=== PATIENT | male | born 1975 | race American Indian/Alaskan Native ===

== ENCOUNTER 2018-03-28 18:28 | Emergency (ER) | payer MEDICAID, OTHER ==
[2018-03-28 18:53] VITALS: RESP 18
[2018-03-28 19:57] LABS: BASO % 0.7 % (0.0-2.0); EOS # 0.1 K/uL (0.0-0.7); EOS % 1.6 % (0.0-4.0); LYMPH # 1.9 K/uL (1.0-4.3); LYMPH % 26.7 % (20.0-40.0); MEAN CELL VOLUME 89.5 fL (80.0-94.0); MEAN CORPUSCULAR HEMOGLOBIN 29.1 pg (27.0-31.0); MEAN CORPUSCULAR HGB CONC 32.6 g/dL (33.0-37.0); MEAN PLATELET VOLUME 10.1 fL (7.2-11.7); MONO # 0.5 K/uL (0.0-0.8); MONO % 7.9 % (0.0-10.0); NEUT # 4.4 K/uL (1.8-7.0); NEUT % 63.1 % (50.0-75.0); NRBC % 0.1 % (0.0-2.0); RBC 4.82 Mil/uL (4.40-5.90); RED CELL DISTRIBUTION WIDTH 13.4 % (11.5-14.5)
[2018-03-28 20:10] LABS: INR 1.2; PROTHROMBIN TIME 12.6 SECONDS (9.7-12.2)
[2018-03-28 20:11] LABS: ALB/GLOB RATIO 1.1 (1.0-2.1); ALBUMIN 4.1 g/dL (3.5-5.0); ALT/SGPT 28 U/L (21-72); AST/SGOT 22 U/L (17-59); BLOOD UREA NITROGEN 20 mg/dL (9-20); CALCIUM 8.8 mg/dl (8.6-10.4); GFR NON-AFRICAN AMERICAN > 60
[2018-03-28 20:25] LABS: SQUAMOUS EPITHIAL 2 /hpf (0-5); URINE BACTERIA FEW (<OCC); URINE BILIRUBIN NEGATIVE (NEGATIVE); URINE BLOOD NEGATIVE (NEGATIVE); URINE CLARITY Clear (Clear); URINE COLOR Yellow (YELLOW); URINE GLUCOSE (UA) NORMAL (Normal); URINE HYALINE CAST 0-2 /lpf (0-2); URINE LEUKOCYTE ESTERASE 1+ Leu/uL (Negative); URINE PROTEIN 2+ mg/dL (NEGATIVE)
[2018-03-28 20:27] VITALS: TEMP 98; O2SAT 98
--- NOTE | 2018-03-28 20:57 | C.PDOC ---
History Of Present Illness 43 y/o male pt presents to the ER with c/o swelling and pain in his lower extremity for x1 year. Pt reports he is able to ambulate, slowly over the past year. He was seen very recently <1 week ago in a different hospital, [facility] here he received repeated US, results (-) and 20mg for Lasix. He notes that he also saw his PMD a couple of days ago who reccomended continued lasix. Pt notes that his swelling has not worsened, but that he is concerned because he has seen minimal improvement. He denies any orthopnea, PND, sob or chest pain. NO redness or erythema to RLE. NO penile pain or d/c or rash. No fever, chills or night sw eats. No other complaints Time Seen by Provider: 03/28/18 20:57 Chief Complaint (Nursing): Lower Extremity Problem/Injury History Per: Patient History/Exam Limitations: no limitations Onset/Duration Of Symptoms: Days (x1 year) Current Symptoms Are (Timing): Still Present Past Medical History Reviewed: Historical Data, Nursing Documentation, Vital Signs Vital Signs: Last Vital Signs Temp 98 F 03/28/18 20:26 Pulse 78 03/28/18 20:26 Resp 18 03/28/18 20:26 BP 119/73 03/28/18 20:26 Pulse Ox 98 03/28/18 20:26 Family History: States: Unknown Family Hx - Social History Hx Alcohol Use: No Hx Substance Use: No - Immunization History Hx Tetanus Toxoid Vaccination: No Hx Influenza Vaccination: No Hx Pneumococcal Vaccination: No Review Of Systems Constitutional: Negative for: Fever, Chills, Weakness Eyes: Negative for: Pain Cardiovascular: Negative for: Chest Pain Respiratory: Negative for: Cough, SOB with Excertion Gastrointestinal: Negative for: Nausea, Vomiting, Abdominal Pain, Constipation, Melena Genitourinary: Negative for: Dysuria, Frequency Musculoskeletal: Positive for: Leg Pain, Other (swelling of lower extremity). Negative for: Neck Pain, Back Pain, Hand Pain Neurological: Negative for: Weakness, Numbness, Incoordination, Altered Mental Status, Headache Psych: Negative for: Anxiety, Depression Physical Exam - Physical Exam Appears: Non-toxic, No Acute Distress Skin: Warm, Dry Head: Normacephalic Eye(s): bilateral: Normal Inspection, PERRL, EOMI Oral Mucosa: Moist Tongue: Normal Appearing Lips: Normal Appearing Teeth: Normal Dentition Throat: Normal, No Erythema Neck: Normal ROM, Supple, Other (no meningeal signs) Lymphatic: No Axilla Node Tenderness, No Inguinal Node Tenderness Chest: Symmetrical, No Deformity Cardiovascular: Rhythm Regular, No Friction Rub Respiratory: Normal Breath Sounds, No Decreased Breath Sounds, No Rales, No Rhonchi, No Wheezing Gastrointestinal/Abdominal: Soft, No Tenderness Back: No CVA Tenderness Male Genital: Normal Inspection Extremity: Normal ROM, Pedal Edema (2+ RLE. 1+ LLE), No Calf Tenderness, Capillary Refill (normal), Swelling, Other (n/v intact in both b/l le) Extremity: Bilateral: Atraumatic, Normal Color And Temperature, Normal ROM Pulses: Left Dorsalis Pedis: Normal, Right Dorsalis Pedis: Normal Neurological/Psych: Oriented x3, Normal Speech, Normal Cognition, Normal Cranial Nerves, No Cerebellar Signs, Normal Motor, Normal Sensation, Normal Reflexes Gait: Steady Extremity: Right: No Drift, Left: No Drift, Upper: No Drift, Lower: No Drift ED Course And Treatment - Laboratory Results Result Diagrams: 03/28/18 20:01 03/28/18 20:00 ECG: Interpreted By Me, Viewed By Me Interpretation Of ECG: nml sinus. Single flipped T in T3. Rate From EC O2 Sat by Pulse Oximetry: 98 Medical Decision Making Medical Decision Making: Impression: Pedal edema, Lymphedema. Pt has previously been diagnosed w/ lym phedema and has had repeated w/u w/ multiple negative US for DVT at outside institution. Pt was diagnosed w/ lymphedema and f/u w/ PMD who reccomended continued lasix. Pt notes mild imporvement with lasix. Given able to ambulate, mild b/l LE edema w/ negative BNPS previously and echo, likely recurrent lymphedema. I endorsed and educated patient regarding lymphedema- as well as need for compression stocking. I endorsed that we would run some labs and he is agreeable. Plans: -- chem labs -- blood work -- Urine cx -- UA 2225 labs unremarkable besides uti. No prostate complaints. no fullness, dysuria, testicular pain. No testicular swelling. clear for d/c home Disposition - Disposition Referrals: [facility] [Outside] Chip Crane MD [Non-Staff] - Jamari Live MD [Staff Provider] - Disposition: HOME/ ROUTINE Disposition Time: 22:24 Condition: GOOD Prescriptions: RX: Ciprofloxacin [Cipro] 500 mg PO BID 14 Days #28 tab Instructions: Urinary Tract Infection, Adult (DC), Lymphedema (DC) Forms: [facility] (Yoruba) - Clinical Impression Clinical Impression: Lymphedema, UTI (urinary tract infection) - Scribe Statement The provider has reviewed the documentation as recorded by the Freddy Licona Do Provider Attestation: All medical record entries made by the Scribe were at my direction and personally dictated by me. I have reviewed the chart and agree that the record accurately reflects my personal performance of the history, physical exam, medical decision making, and the department course for this patient. I have also personally directed, reviewed, and agree with the discharge instructions and disposition.
[2018-03-28] MEDS ORDERED: Oxycodone/Acetaminophen 5/325 mg Tab ONE (21:42)
[2018-03-28 22:55] VITALS: BP 122/84; PULSE 82
--- NOTE | 2018-03-29 21:20 | CARD ---
APPROVED REPORT Date of service: 03/28/2018 EKG Measurement Heart [id number] CO [id number] [id number] <Conclusion> Normal sinus rhythm Rightward axis Cannot rule out Inferior infarct, age undetermined Abnormal ECG
== END 2018-03-28 22:56 | disposition home or self-care (01) ==
LOC: C.ER 18:28
DX: I89.0 Lymphedema, not elsewhere classified (principal); N39.0 Urinary tract infection, site not specified

== ENCOUNTER 2018-05-06 11:09 | Emergency (ER) | payer MEDICAID ==
[2018-05-06 13:06] LABS: BASO % 0.6 % (0.0-2.0); EOS # 0.1 K/uL (0.0-0.7); EOS % 1.4 % (0.0-4.0); LYMPH # 1.7 K/uL (1.0-4.3); LYMPH % 24.1 % (20.0-40.0); MEAN CELL VOLUME 91.2 fL (80.0-94.0); MEAN CORPUSCULAR HEMOGLOBIN 29.7 pg (27.0-31.0); MEAN CORPUSCULAR HGB CONC 32.6 g/dL (33.0-37.0); MEAN PLATELET VOLUME 11.1 fL (7.2-11.7); MONO # 0.6 K/uL (0.0-0.8); MONO % 8.6 % (0.0-10.0); NEUT # 4.6 K/uL (1.8-7.0); NEUT % 65.3 % (50.0-75.0); NRBC % 0.1 % (0.0-2.0); RBC 4.7 Mil/uL (4.40-5.90); RED CELL DISTRIBUTION WIDTH 13.4 % (11.5-14.5)
[2018-05-06 13:22] LABS: ALB/GLOB RATIO 1.2 (1.0-2.1); ALBUMIN 4.2 g/dL (3.5-5.0); ALT/SGPT 37 U/L (21-72); AST/SGOT 24 U/L (17-59); BLOOD UREA NITROGEN 19 mg/dL (9-20); CALCIUM 8.9 mg/dl (8.6-10.4); GFR NON-AFRICAN AMERICAN > 60
[2018-05-06 13:33] LABS: B-TYPE NATRIURETIC PEPTIDE < 11.1 pg/mL (0-450)
[2018-05-06 14:31] LABS: INR 1.1; PARTIAL THROMBOPLASTIN TIME 31 SECONDS (21-34); PROTHROMBIN TIME 11.6 SECONDS (9.7-12.2)
--- NOTE | 2018-05-06 14:31 | C.PDOC ---
History Of Present Illness 43 y/o male, w/PMhx of lower extremity lymph edema, presents to the ER complaining of pain in bilateral lower extremities. Patient states that he is not taking diuretics presently. Patient reports that he has not lost weight. 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 Patient is also complaining of large mass descending into the right scrotum. He notes that he has urinary incontinence. Denies having weakness, numbness, dysuria, and hematuria. h/o sleep apnea, has not used mask in 5 yrs since incarceration gained approx 100 # during time incarcerated in past 2-3 years Severe sleep apnea s/s @ home. no sig weight loss since release from senior care 03/14 Time Seen by Provider: 05/06/18 13:58 Chief Complaint (Nursing): Lower Extremity Problem/Injury History Per: Patient History/Exam Limitations: no limitations Onset/Duration Of Symptoms: Days Current Symptoms Are (Timing): Still Present Severity: Moderate Past Medical History Reviewed: Historical Data, Nursing Documentation, Vital Signs Vital Signs: Last Vital Signs Temp 98.7 F 05/06/18 11:14 Pulse 91 H 05/06/18 13:15 Resp 19 05/06/18 13:15 BP 128/78 05/06/18 13:15 Pulse Ox 98 05/06/18 13:15 - Medical History PMH: No Chronic Diseases Other Surgeries: Hx of surgeries Family History: States: No Known Family Hx - Social History Hx Alcohol Use: Yes Hx Substance Use: No - Immunization History Hx Tetanus Toxoid Vaccination: Yes Hx Influenza Vaccination: No Hx Pneumococcal Vaccination: No Review Of Systems Except As Marked, All Systems Reviewed And Found Negative. Constitutional: Negative for: Fever, Chills Musculoskeletal: Positive for: Leg Pain Neurological: Negative for: Weakness, Numbness Physical Exam - Physical Exam Appears: Other (morbidly obese) Skin: Normal Color, Warm, Dry Head: Atraumatic, Normacephalic Eye(s): bilateral: Normal Inspection Nose: Normal Oral Mucosa: Moist Neck: Supple Chest: Symmetrical Cardiovascular: Rhythm Regular Respiratory: Rales, No Rhonchi, No Wheezing Gastrointestinal/Abdominal: Soft, No Tenderness, No Distention, No Guarding, No Rebound, Other (globus) Male Genital: Other (large firm R inguinal hernia into R scrotum, bowel sounds auscultated) Extremity: Normal ROM, Other (pitting edema to bilateral lower extremities) Neurological/Psych: Oriented x3, Normal Speech ED Course And Treatment - Laboratory Results Result Diagrams: 05/06/18 13:03 05/06/18 13:03 Lab Interpretation: Normal (d-dimer neg.bnp/trop neg.) ECG: Interpreted By Me ECG Rhythm: Sinus Rhythm ECG Interpretation: Normal Rate From EC O2 Sat by Pulse Oximetry: 98 (RA) Pulse Ox Interpretation: Normal - Other Rad lower ext dopplers X-Ray: Read By Radiologist (no DVT's) Progress Note: lasix IV,. Labs and CXR ordered. Reevaluation Time: 16:15 Reassessment Condition: Improved - Physician Consult Information Outcome Of Conversation: d/w HOspitalists- no acute inpatient tx indicated. may refer for opt Sleep Study or CPAP equipment. Outpatient referral for R inguinal hernia. Consider gastric bypass surgery Disposition Doctor Will See Patient In The: Office Counseled Patient/Family Regarding: Studies Performed, Diagnosis - Disposition Referrals: [facility] [Outside] [facility] [Outside] [facility] [Outside] [facility] [Outside] Raheel Gillette MD [Staff Provider] - El Aviles MD [Staff Provider] - Disposition: HOME/ ROUTINE Disposition Time: 16:20 Condition: GOOD Additional Instructions: d/w HOspitalists- no acute inpatient tx indicated may refer for opt Sleep Study or CPAP equipment Call Dr. Gillette's Office for Outpatient referral for R inguinal hernia [facility] for [facility]t Refer to Dr. Crisostomo Consider gastric bypass surgery outpatient referral to clinic as needed Instructions: Obesity, Adult, Inguinal and Femoral (Groin) Hernias, Lymphedema Forms: [facility] (Armenian) - Clinical Impression Clinical Impression: Lymphedema, Inguinal hernia, right, Morbid obesity due to excess calories - Scribe Statement The provider has reviewed the documentation as recorded by the Freddy Willson Provider Attestation: All medical record entries made by the Scribe were at my direction and personally dictated by me. I have reviewed the chart and agree that the record accurately reflects my personal performance of the history, physical exam, medical decision making, and the department course for this patient. I have also personally directed, reviewed, and agree with the discharge instructions and disposition.
[2018-05-06 14:39] LABS: D DIMER < 200 ng/mlDDU (0-243)
--- NOTE | 2018-05-06 15:46 | RAD ---
Date of service: 05/06/2018 HISTORY: SOB COMPARISON: None available. FINDINGS: LUNGS: No active pulmonary disease. PLEURA: No significant pleural effusion identified, no pneumothorax apparent. CARDIOVASCULAR: No aortic atherosclerotic calcification present. Heart size upper limits of normal slight left ventricular configuration. No pulmonary vascular congestion. OSSEOUS STRUCTURES: No significant abnormalities. VISUALIZED UPPER ABDOMEN: Normal. OTHER FINDINGS: None. IMPRESSION: No active disease.
[2018-05-06 17:07] VITALS: BP 130/86; PULSE 89; RESP 18; TEMP 98; O2SAT 96
--- NOTE | 2018-05-07 12:34 | VASCLAB ---
Date of service: 05/06/2018 PROCEDURE: Lower Extremity Venous Duplex Exam. HISTORY: leg edema PRIORS: None. TECHNIQUE: Bilateral common femoral, femoral, popliteal and posterior tibial, peroneal and great saphenous veins were evaluated. Flow was assessed with color Doppler, compressibility, assessment of phasic flow and augmentation response. Report prepared by Monty Valentino, TRICE, RVT FINDINGS: RIGHT: 1. Common Femoral Vein: 1.1. Compressibility - Fully compressible: Thrombus - None : Flow - Phasic: Augmentation -Normal: Reflux - None. 2. Femoral Vein: 2.1. Compressibility - Fully compressible: Thrombus - None : Flow - Phasic: Augmentation -Normal: Reflux - None. 3. Popliteal Vein: 3.1. Compressibility - Fully compressible: Thrombus - None : Flow - Phasic: Augmentation -Normal: Reflux - None. 4. Posterior Tibial Vein: 4.1. Compressibility - : Thrombus - : Flow - : Augmentation -: Reflux - . 5. Peroneal Vein: 5.1. Compressibility - : Thrombus - : Flow - : Augmentation -: Reflux - . 6. Great Saphenous Vein: 6.1. Compressibility - Fully compressible: Thrombus - None: Flow - Phasic: Augmentation - Normal: Reflux - None. LEFT: 1. Common Femoral Vein: 1.1. Compressibility - Fully compressible: Thrombus - None: Flow - Phasic: Augmentation -Normal: Reflux - None. 2. Femoral Vein: 2.1. Compressibility - Fully compressible: Thrombus - None: Flow - Phasic: Augmentation -Normal: Reflux - None. 3. Popliteal Vein: 3.1. Compressibility - Fully compressible: Thrombus - None : Flow - Phasic: Augmentation -Normal: Reflux - None. 4. Posterior Tibial Vein: 4.1. Compressibility - : Thrombus - : Flow - : Augmentation -: Reflux - . 5. Peroneal Vein: 5.1. Compressibility - : Thrombus - : Flow - : Augmentation -: Reflux - . 6. Great Saphenous Vein: 6.1. Compressibility - Fully compressible: Thrombus - None: Flow - Phasic: Augmentation - Normal: Reflux - None. OTHER FINDINGS: Due to swelling in the calves, bilateral peroneal and posterior tibial veins were not visualized. Impression Right: No evidence of deep or superficial vein thrombosis of the right lower extremity. Normal valve function noted of the right side. Left: No evidence of deep or superficial vein thrombosis of the left lower extremity. Normal valve function noted of the left side.
--- NOTE | 2018-05-07 21:51 | CARD ---
APPROVED REPORT Date of service: 05/06/2018 EKG Measurement Heart [id number] <Conclusion> Normal sinus rhythm Possible Left atrial enlargement Borderline ECG
== END 2018-05-06 17:07 | disposition home or self-care (01) ==
LOC: C.ER 11:09
DX: I89.0 Lymphedema, not elsewhere classified (principal); K40.90 Unilateral inguinal hernia, without obstruction or gangrene, not specified as recurrent; E66.01 Morbid (severe) obesity due to excess calories
CPT/HCPCS: 71045; 80053; 83735; 83880; 84100; 84484; 85025; 85378; 85610; 85730; 93005; 93970; 96374; 99284; J1940

== ENCOUNTER 2018-06-24 14:16 | Outpatient (CLI) | payer MEDICAID | END 2018-06-24 14:17 | disposition home or self-care (01) | LOC: C.USIC 14:17 | DX: N43.3 Hydrocele, unspecified (principal) ==